=== PATIENT | male | born 1945 | race Caucasian/White ===

== ENCOUNTER → 2016-08-03 | Outpatient (CLI) | payer MEDICARE ==
[~2016-08-03] MED LIST: ALLO100T30 PO; AMLO1CAP10 PO; ATOR10TA PO; CITA40TA12 PO; DIAZ5TAB4 PO; GABA600T2 PO; HYDR-3240 PO; WARF3TAB7 PO-COUM; WARF7.5T6 PO
== END | disposition home or self-care (01) ==
LOC: CVU 13:06
PROVIDERS: ATTEND Internal Medicine Cardiovascular Disease
DX: I51.7 Cardiomegaly (principal); I05.8 Other rheumatic mitral valve diseases; I10 Essential (primary) hypertension; Z95.2 Presence of prosthetic heart valve; Z95.0 Presence of cardiac pacemaker
CPT/HCPCS: C8929

== ENCOUNTER → 2017-12-19 | Outpatient (CLI) | payer MEDICARE ==
[~2017-12-19] MED LIST changes: +WARF3TAB52 PO-COUM; -WARF3TAB7 PO-COUM; +WARF7.5T46 PO; -WARF7.5T6 PO
== END | disposition home or self-care (01) ==
LOC: CVU 12:35
PROVIDERS: ATTEND Internal Medicine Cardiovascular Disease
DX: I35.9 Nonrheumatic aortic valve disorder, unspecified (principal); E78.5 Hyperlipidemia, unspecified; F17.210 Nicotine dependence, cigarettes, uncomplicated; Z95.4 Presence of other heart-valve replacement; I10 Essential (primary) hypertension
CPT/HCPCS: C8929; Q9957

== ENCOUNTER 2019-02-08 11:26 | Outpatient (CLI) | payer MEDICARE ==
[~2019-02-08 11:26] MED LIST changes: -AMLO1CAP10 PO; +AMLO1CAP11 PO; -GABA600T2 PO; +GABA600T7 PO
== END 2019-02-08 23:59 | disposition home or self-care (01) ==
LOC: CVU 11:26
PROVIDERS: ATTEND Internal Medicine Cardiovascular Disease
DX: Z02.9 Encounter for administrative examinations, unspecified (principal)